=== PATIENT | female | born 1975 ===

== ENCOUNTER 2017-01-29 08:30 | Emergency (ER) | payer OTHER ==
[~2017-01-29] VITALS: Ht 152.4 cm; Wt 50.0 kg
[2017-01-29 08:43] VITALS: BP 108/71; PULSE 74; RESP 20; TEMP 98.1; O2SAT 100
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
[2017-01-29] MEDS ORDERED: ZOFR4TAB3 SL (09:39)
[2017-01-29] MEDS ORDERED: CYCL5TAB PO (09:39)
[2017-01-29] MEDS ORDERED: CYCLOBENZAPRINE HCL 10 MG TAB PO ONE (09:45)
[2017-01-29] MEDS ORDERED: ONDANSETRON ODT 4 MG TAB PO ONE (09:45)
== END 2017-01-29 10:01 | disposition home or self-care (01) ==
LOC: NEPE 08:30
DX: M54.9 Dorsalgia, unspecified (principal); M25.552 Pain in left hip; M25.551 Pain in right hip; V49.40XA Driver injured in collision with unspecified motor vehicles in traffic accident, initial encounter; Y92.488 Other paved roadways as the place of occurrence of the external cause
CPT/HCPCS: 99284